=== PATIENT | female | born 1945 | race Caucasian/White ===

== ENCOUNTER 2022-08-30 08:05 | Emergency (ER) | payer OTHER ==
[~2022-08-30] VITALS: Ht 154.9 cm; Wt 61.2 kg
[2022-08-30 08:07] VITALS: BP_SYST 151
--- NOTE | 2022-08-30 08:12 | NUR ---
Placed in room 01 . Placed on rn cardiac, blood pressure machine and pulse oximeter. To gown for exam. Side rails up. Report given to WINSOME RUBALCAVA.
--- NOTE | 2022-08-30 08:13 | NUR ---
PT SILVIO BLS FROM HOME C/O FEELING WEAK AND DIZZY. STATES HER SON GAVE HER TWO PILLS LAST NIGHT ONE TO "SLEEP" AND ONE TO "RELAX" AT 1600, THEN HAD ABD PAIN, NAUSEA AND RODRÍGUEZ WHICH HAVE SUBSIDED. STATES SHE DOES NOT KNOW WHAT THE PILLS ARE. PT ARRIVES AAOX4, VSS
--- NOTE | 2022-08-30 08:15 | NUR ---
# 22 gauge angiocath placed to LAC. Use of asceptic technique. Opsite placed over site. Blood return noted. Blood for lab drawn from site. Flushed with 10 cc of normal saline. No evidence of infiltration noted. Patient tolerated well.
--- NOTE | 2022-08-30 08:33 | NUR ---
PT AMBULATEDTO RESTROOM WITH STEADY GAIT, STATED UNABLE TO VOIDAT THIS TME
[2022-08-30] MEDS ORDERED: HYDR-500 PO (09:42)
--- NOTE | 2022-08-30 10:01 | NUR ---
A/OX4 VSS VERBALIZED UNDERSTANDING OF DC INSTRUCTIONS, DENIES DIZZINESS
--- NOTE | 2022-08-30 10:02 | NUR ---
Patient given written and verbal discharge instructions and verbalizes understanding. ER MD discussed with patient the results and treatment provided. Patient in stable condition. Rx of given. Patient educated on pain management and to follow up with PMD. Pain Scale [0]. Opportunity for questions provided and answered. Medication side effect fact sheet provided.
== END 2022-08-30 10:03 | disposition home or self-care (01) ==
LOC: SED 08:05
DX: R53.1 Weakness (principal); R42 Dizziness and giddiness; E11.9 Type 2 diabetes mellitus without complications; I10 Essential (primary) hypertension; Z79.899 Other long term (current) drug therapy
CPT/HCPCS: 99283

== ENCOUNTER 2023-11-19 10:33 | Inpatient (IN) | payer OTHER ==
[~2023-11-19] VITALS: Ht 154.9 cm; Wt 58.8 kg
[~2023-11-19 10:33] MED LIST: HYDR-500 PO
[2023-11-19 10:36] VITALS: BP_SYST 158; PULSE 63; RESP 18; TEMP 98.1; O2SAT 97
[2023-11-19] MEDS: NITROGLYCERIN 1 INCH (GM) OINT. TP ONE (11:20)
[2023-11-19] MEDS: ASPIRIN 81 MG TAB.CHEW PO ONE (11:38)
[2023-11-19] MEDS ORDERED: VALS160T29 (11:44)
[2023-11-19] MEDS ORDERED: FURO-150 (11:45)
[2023-11-19] MEDS ORDERED: ZOLP10TA6 (11:45)
[2023-11-19] MEDS ORDERED: AMLO2.5T50 (11:45)
[2023-11-19] MEDS ORDERED: POTA-80 (11:45)
[2023-11-19] MEDS ORDERED: LIP10 (11:45)
[2023-11-19] MEDS ORDERED: HYDR12.55 (11:45)
[2023-11-19] MEDS ORDERED: METF-834 (11:45)
[2023-11-19 12:24] LABS: BASOPHILS % (AUTO) 0.3 % (0.0-2.0); EOSINOPHILS # (AUTO) 0.1 K/uL (0.0-0.4); EOSINOPHILS % (AUTO) 0.9 % (0.0-4.0); HEMATOCRIT 38.8 % (36-48); HEMOGLOBIN 13.2 g/dL (12.0-16.0); LYMPHOCYTES # (AUTO) 1.4 K/uL (1.0-5.5); MEAN CORPUSCULAR HEMOGLOBIN 30 pg (27-31); MEAN CORPUSCULAR HGB CONC 34 % (32-36); MEAN CORPUSCULAR VOLUME 89 fL (79.0-98.0); MONOCYTES # (AUTO) 0.6 K/uL (0.0-1.0); MONOCYTES % (AUTO) 8.9 % (1.7-9.3); NEUTROPHILS # (AUTO) 4.6 K/uL (1.8-7.7); NEUTROPHILS % (AUTO) 68.9 % (40.0-70.0); PLATELET COUNT (AUTO) 259 K/uL (130-430); RED BLOOD CELL COUNT(AUTO) 4.36 MIL/uL (4.2-6.2); WHITE BLOOD COUNT (AUTO) 6.7 K/uL (4.8-10.8)
[2023-11-19 12:25] LABS: ANION GAP 9 (5-15); CALCIUM 9.3 mg/dL (8.4-11.0); CARBON DIOXIDE 27 mmol/L (23-29); CHLORIDE 101 mmol/L (98-107); CREATININE 0.87 mg/dL (0.55-1.30); GLUCOSE 127 mg/dL (74-106); POTASSIUM 4.3 mmol/L (3.5-5.1); SODIUM SERUM 137 mmol/L (136-145); UREA NITROGEN, BLOOD 11 mg/dL (8-21)
[2023-11-19] MEDS ORDERED: ONDANSETRON HCL 4 MG/2 ML VIAL IVP PRN (14:45)
[2023-11-19] MEDS ORDERED: MORPHINE 2 MG/ML INJ. SYRINGE IVP PRN (14:45)
[2023-11-19] MEDS ORDERED: ACETAMINOPHEN 325 MG TABLET PO PRN ×2 (14:45→15:00)
[2023-11-19] MEDS: NACL 0.9% 1,000 ML IV SCH (15:16)
[2023-11-19] MEDS: ATORVASTATIN 20 MG TABLET PO ONE (15:17)
[2023-11-19] MEDS: LOSARTAN POTASSIUM 50 MG TABLET (COZAAR) PO ONE (15:18)
[2023-11-19] MEDS: HYDROCHLOROTHIAZIDE 12.5 MG CAPSULE (HCTZ) PO ONE (15:19)
[2023-11-19] MEDS: FUROSEMIDE 20 MG TABLET PO ONE (15:19)
[2023-11-19] MEDS: HEPARIN SODIUM,PORCINE 5,000 UNITS/ML VIAL SUBCUT ONE (16:29)
[2023-11-19 17:15] VITALS: BP_SYST 150; PULSE 54; RESP 20; TEMP 98.2
[2023-11-19 17:49] VITALS: O2SAT 97
[2023-11-19 20:00] VITALS: BP_SYST 119; PULSE 64; RESP 20; TEMP 98.2; O2SAT 95; O2SAT 96
[2023-11-19] MEDS: HYDROcodone/ACETAMIN 5-325 MG TAB (NORCO/ VICODIN) PO PRN (21:54)
[2023-11-19] MEDS: HEPARIN SODIUM,PORCINE 5,000 UNITS/ML VIAL SUBCUT SCH (21:56)
[2023-11-20 01:00] VITALS: BP_SYST 118; PULSE 74; RESP 20; TEMP 97.3; O2SAT 96
[2023-11-20 06:50] LABS: ALANINE AMINOTRANSFERASE 11 U/L (12-78); ALBUMIN 3.1 g/dL (3.4-4.8); ANION GAP 12 (5-15); ASPARTATE AMINOTRANSFERASE 9 U/L (10-37); CALCIUM 8.5 mg/dL (8.4-11.0); CARBON DIOXIDE 27 mmol/L (23-29); CHLORIDE 106 mmol/L (98-107); CREATININE 0.84 mg/dL (0.55-1.30); GLUCOSE 145 mg/dL (74-106); POTASSIUM 3.1 mmol/L (3.5-5.1); SODIUM SERUM 145 mmol/L (136-145); TOTAL BILIRUBIN 0.5 mg/dL (0.0-1.0); TOTAL PROTEIN, SERUM 6.3 g/dL (6.4-8.3); UREA NITROGEN, BLOOD 9 mg/dL (8-21)
[2023-11-20 06:58] LABS: BASOPHILS % (AUTO) 0.5 % (0.0-2.0); EOSINOPHILS # (AUTO) 0.2 K/uL (0.0-0.4); EOSINOPHILS % (AUTO) 4.4 % (0.0-4.0); HEMATOCRIT 35.8 % (36-48); HEMOGLOBIN 12.2 g/dL (12.0-16.0); LYMPHOCYTES # (AUTO) 2.2 K/uL (1.0-5.5); MEAN CORPUSCULAR HEMOGLOBIN 30 pg (27-31); MEAN CORPUSCULAR HGB CONC 34 % (32-36); MEAN CORPUSCULAR VOLUME 89 fL (79.0-98.0); MONOCYTES # (AUTO) 0.5 K/uL (0.0-1.0); MONOCYTES % (AUTO) 9.1 % (1.7-9.3); NEUTROPHILS # (AUTO) 2.2 K/uL (1.8-7.7); PLATELET COUNT (AUTO) 233 K/uL (130-430); RED BLOOD CELL COUNT(AUTO) 4.04 MIL/uL (4.2-6.2); RED CELL DISTRIBUTION WIDTH 14.2 % (9.0-15.0)
[2023-11-20 08:30] VITALS: BP_SYST 133; PULSE 54; RESP 18; TEMP 98.4; O2SAT 98
[2023-11-20] MEDS: ATORVASTATIN 20 MG TABLET PO SCH (10:08)
[2023-11-20] MEDS: LOSARTAN POTASSIUM 50 MG TABLET (COZAAR) PO SCH (10:08)
[2023-11-20] MEDS: ASPIRIN 81 MG TAB.CHEW PO SCH (10:09)
[2023-11-20] MEDS: HYDROCHLOROTHIAZIDE 12.5 MG CAPSULE (HCTZ) PO SCH (10:09)
[2023-11-20] MEDS: FUROSEMIDE 20 MG TABLET PO SCH (10:09)
[2023-11-20 11:08] VITALS: BP_SYST 109; PULSE 69; RESP 16; TEMP 97.3; O2SAT 95
[2023-11-20 13:29] VITALS: BP_SYST 109; PULSE 69; RESP 16; TEMP 97.3; O2SAT 95
== END 2023-11-20 19:20 | disposition home or self-care (01) | DRG 313 ==
LOC: SED 10:33 → STU 14:36
PROVIDERS: ADMIT Student in an Organized Health Care Education/Training Program; ATTEND Student in an Organized Health Care Education/Training Program
DX: R07.89 Other chest pain (principal); I10 Essential (primary) hypertension; E11.9 Type 2 diabetes mellitus without complications; E78.5 Hyperlipidemia, unspecified; Z79.84 Long term (current) use of oral hypoglycemic drugs; Z79.899 Other long term (current) drug therapy; Z98.891 History of uterine scar from previous surgery
CPT/HCPCS: 36415; 71045; 80048; 80053; 83735; 83880; 84100; 84484; 85025; 85379; 85730; 93306; 96372; 99285; G0378; J1644